=== PATIENT | female | born 1950 | race Caucasian/White ===

== ENCOUNTER 2023-11-13 08:54 | Inpatient (IN) ==
--- NOTE | 2023-10-25 16:08 | PAT Medication Instructions ---
Medication Instructions Date of Service October 25, 2023 Home Medications Medication Instructions Recorded methylprednisolone 2 mg tablet 2 mg PO DAILY PRN arthritis flare 09/18/19 #30 tabs zoledronic acid 5 mg/100 mL in 5 mg IV YEARLY #100 mL 09/18/19 mannitol 5 %-water intravenous piggybck (Reclast) clonazepam 0.5 mg tablet (Klonopin) 0.5 mg PO DAILY PRN anxiety #30 10/08/23 tabs methylprednisolone 2 mg tablet 2 mg PO DAILY PRN zoledronic acid 5 mg/100 mL in mannitol 5 %-water intravenous piggybck (Reclast) 5 mg IV YEARLY clonazepam 0.5 mg tablet (Klonopin) 0.5 mg PO DAILY PRN ascorbic acid (vitamin C) 1,000 mg tablet 1 gm PO QAM aspirin 81 mg tablet,delayed release (Adult Aspirin Regimen) 81 mg PO QAM atorvastatin 80 mg tablet 80 mg PO QAM cholecalciferol (vitamin D3) 25 mcg (1,000 unit) capsule 50 mcg PO QAM clopidogrel 75 mg tablet 75 mg PO QAM cyanocobalamin (vitamin B-12) 1,000 mcg capsule 1,000 mcg PO QAM ezetimibe 10 mg tablet (Zetia) 10 mg PO QAM hydrochlorothiazide 25 mg tablet 25 mg PO QAM naproxen sodium 220 mg tablet (Aleve) 220 mg PO Q12H PRN tofacitinib 11 mg tablet,extended release 24 hr (Xeljanz XR) 11 mg PO QAM Continue as directed clonazepam 0.5 mg tablet (Klonopin) 0.5 mg PO DAILY PRN(if needed) ASK your surgeon for instructions naproxen sodium 220 mg tablet (Aleve) 220 mg PO Q12H PRN ASK your prescriber and surgeon zoledronic acid 5 mg/100 mL in mannitol 5 %-water intravenous piggybck (Reclast) 5 mg IV YEARLY aspirin 81 mg tablet,delayed release (Adult Aspirin Regimen) 81 mg PO QAM clopidogrel 75 mg tablet 75 mg PO QAM tofacitinib 11 mg tablet,extended release 24 hr (Xeljanz XR) 11 mg PO QAM STOP taking 24 hours before surgery methylprednisolone 2 mg tablet 2 mg PO DAILY PRN DO NOT take the morning of surgery ascorbic acid (vitamin C) 1,000 mg tablet 1 gm PO QAM cholecalciferol (vitamin D3) 25 mcg (1,000 unit) capsule 50 mcg PO QAM cyanocobalamin (vitamin B-12) 1,000 mcg capsule 1,000 mcg PO QAM hydrochlorothiazide 25 mg tablet 25 mg PO QAM Take morning of surgery With a small sip of water, OTHERWISE NOTHING TO EAT OR DRINK AFTER MIDNIGHT: atorvastatin 80 mg tablet 80 mg PO QAM ezetimibe 10 mg tablet (Zetia) 10 mg PO QAM Other Notes If you have any questions please call us at [phone] or [phone] or [phone] or [phone]
--- NOTE | 2023-10-26 09:26 | Anesthesiology Consultation ---
Date of Service October 26, 2023 Assessment & Plan (1) Encounter for pre-operative examination: Chart Review Chart Review: Acceptable Risk for Surgery and Patient seen in Pre Admission Testing Per PAT appt on 10/26/23, no recent illness/disease exposures, illness related symptoms, or recent illness/disease positive tests. Will leave to surgeon's discretion if preop Covid testing needed Teaching & Discussion Pre-Anesthesia Teaching/Discussion Notes: Instructed NPO after midnight before surgery,except medications with 15 cc of water. Medication instructions provided according to the PAT guidelines. History Surgery Operation Date: 11/13/23 12:30 Proposed Procedures p Right Transcarotid Artery Revascularization - Nicholas Meier MD Height/Weight Height: 5 ft 7 in Weight: 84.5 kg Allergies Allergy/AdvReac Type Severity Reaction Status Date / Time No Known Allergies Allergy Verified 10/25/23 15:08 Medications Home Medications Medication Instructions Recorded Confirmed Last Taken methylprednisolone 2 mg tablet 2 mg PO DAILY PRN arthritis flare 09/18/19 10/25/23 Unknown #30 tabs zoledronic acid 5 mg/100 mL in 5 mg IV YEARLY #100 mL 09/18/19 10/25/23 Unknown mannitol 5 %-water intravenous piggybck (Reclast) clonazepam 0.5 mg tablet (Klonopin) 0.5 mg PO DAILY PRN anxiety #30 10/08/23 10/25/23 Unknown tabs ascorbic acid (vitamin C) 1,000 mg 1 gm PO QAM 10/25/23 10/25/23 Unknown tablet aspirin 81 mg tablet,delayed 81 mg PO QAM 10/25/23 10/25/23 Unknown release (Adult Aspirin Regimen) atorvastatin 80 mg tablet 80 mg PO QAM 10/25/23 10/25/23 Unknown cholecalciferol (vitamin D3) 25 50 mcg PO QAM 10/25/23 10/25/23 Unknown mcg (1,000 unit) capsule clopidogrel 75 mg tablet 75 mg PO QAM 10/25/23 10/25/23 Unknown cyanocobalamin (vitamin B-12) 1,000 mcg PO QAM 10/25/23 10/25/23 Unknown 1,000 mcg capsule ezetimibe 10 mg tablet (Zetia) 10 mg PO QAM 10/25/23 10/25/23 Unknown hydrochlorothiazide 25 mg tablet 25 mg PO QAM 10/25/23 10/25/23 Unknown naproxen sodium 220 mg tablet 220 mg PO Q12H PRN Pain 10/25/23 10/25/23 Unknown (Aleve) tofacitinib 11 mg tablet,extended 11 mg PO QAM 10/25/23 10/25/23 Unknown release 24 hr (Xeljanz XR) Past Medical History Medical History Anemia due to vitamin B12 deficiency Anxiety Carotid stenosis On Plavix per Dr Meier Per 09/2023 neck CTA- right ICA 90% stenosis, 50% stenosis left ICA Hyperlipidemia Hypertension On anticoagulant therapy plavix daily Osteoporosis PAD (peripheral artery disease) Per 09/2023 neck CTA - approximately 50% narrowing of origin of left subclavian artery Per [facility] bilateral duplex 09/26/23= left SFA 50-69% stenosis Rheumatoid arthritis Follows with rheum Currently stable Exercise / Class Metabolic Activity II 4-5 Yardwork/Stairs/Walk up hill (one flight of stairs - no chest pain or SOB ) Past Family History Family History Mother Anxiety Depression Stroke Brother Diabetes Asthma Sister Diabetes Hypertension Grandmother Uterus cancer Grandmother (Maternal) Colorectal cancer Other No family history of adverse response to anesthesia Denies family history of Ovarian cancer Prostate cancer Myocardial infarction Breast cancer Colonic polyp Past Surgical History Surgical History History of arthroscopy of knee left History of bilateral cataract extraction History of colonoscopy Jul 2015 repeat 5 yrs History of oophorectomy right History of tooth extraction all teeth removed Past Anesthesia History No Hx of Anesthesia Complications and No Family Hx of Anesthesia Complications History of PONV No Hx of PONV and No Hx of Motion Sickness Social History Smoking Status: Current some day smoker Smoking cigarettes per day: maybe 1 "can go days without one and then have one" Do You Dip or Chew Tobacco: No Hx Alcohol Use: Yes Alcohol type: wine alcohol intake frequency: a few times a week Hx Substance Use: No substance use type: does not use Review of Systems - Hx snoring- no hx of sleep study Patient denies chest pain, shortness of breath, dyspnea on exertion, reflux, cough, wheezing, palpitations. No hx of seizures, stroke, [place]. No hx of blood clots or blood transfusions Physical Exam Vital Signs VITALS BP 118/74 P 63 TEMP 97.6 SP02 93% RESP 16 Constitutional no acute distress ENMT Mouth: no TMJ clicking Thyromental Distance: < 3.5 Finger Breadths (3.0) Mallampati Class: III Full dentures on top and bottom Neck + limited neck extension (mild) Respiratory normal respiratory effort; no respiratory distress Auscultation: lungs clear to auscultation bilaterally; no wheezes Cardiovascular Rate/Rhythm: regular rate and regular rhythm Heart Sounds: no murmur Vessels: no carotid bruit Heart sounds mildly diminished throughout Musculoskeletal Spine: + pain with cervical ROM (mildly uncomfortable ) Extremities: extremities normal to inspection Psychiatric Orientation: alert Lab Results Anesthesia Preop Results Results Anesthesia Widget: WBC 7.04 K/ul (4.8-10.8) 10/26/23 Hgb 13.2 g/dl (12.0-16.0) 10/26/23 Hct 37.2 % (37.0-47.0) 10/26/23 Plt 219 K/uL (130-400) 10/26/23 Na 137 mmol/L (136-145) 10/26/23 K 3.7 mmol/L (3.5-5.1) 10/26/23 Cl 101 mmol/L (98-107) 10/26/23 CO2 31 mmol/L (21-32) 10/26/23 BUN 14 mg/dl (6-23) 10/26/23 Creat 0.72 mg/dl (0.6-1.2) 10/26/23 Glucose Level 99 mg/dl (70-99(Fasting)) 10/26/23 PT 10.3 Seconds (9.0-12.0) 10/26/23 PTT 26 Seconds (21-31) 10/26/23 INR 0.9 (0.9-1.1) 10/26/23 Blood Type B Positive 10/26/23 Antibody Screen NEGATIVE 10/26/23 Testing Electrocardiogram Date: 10/26/23 SR with 1st degree AVB at 60bpm Otherwise normal EKG per cardio Chest X-Ray Date: 10/26/23 FINDINGS: Mild right hemidiaphragmatic elevation. Cardiac silhouette is mildly enlarged. No pneumothorax, pleural effusion or airspace consolidation. Cortical thickening of the proximal left humerus suggestive of a healed fracture deformity. Bones are grossly intact. IMPRESSION: No acute process. Cervical Spine Date: 10/26/23 FINDINGS: AP, lateral, odontoid, flexion, and extension views of the cervical spine are obtained. Correlation is made with CT of the neck dated 10/03/2023. The skeletal structures are osteopenic. There is no radiographic evidence of fracture or subluxation. Vertebral body height and alignment are maintained throughout the cervical spine. There is straightening of the cervical lordosis. Anterior osteophytes are seen throughout. There is no inducible bony subluxation on the flexion/extension views. The odontoid process and lateral masses appear intact as seen on the open-mouth view. Productive degenerative change is noted at the atlantodental articulation. The spinolaminar line is intact. The spinous processes are preserved. There is moderate to severe disc space narrowing at all cervical levels between C4-C5 and C7-T1. Posterior disc osteophyte complexes at C4-C5, C5-C6, and C6-C7 may contribute to acquired compromise of the central canal. There is multilevel degenerative endplate sclerosis. Multilevel facet arthropathy seen on the AP view. The prevertebral soft tissues are within normal limits. The imaged apical lung parenchyma appears clear. There is advanced atherosclerotic calcification of the carotid bulbs. IMPRESSION: 1. No acute bony abnormality is seen involving the cervical spine. 2. Osteopenia and spondylotic change as above. 3. No bony subluxation is seen on the flexion/extension views. Other Testing Neck CTA 10/03/2023 = severe, approximately 90% narrowing in the proximal right ICA from calcified and noncalcified atherosclerotic plaque. Approximately 50% narrowing at the proximal left ICA. Atherosclerosis of the origins of the great vessels from the arch including a proximately 50% narrowing of the origin of the left subclavian artery. No intracranial aneurysm, flow-limiting stenosis or high-grade vascular malformation Bilateral lower extremity arterial duplex 09/26/2023 = right lower extremity arteries demonstrate no significant stenosis. Left SFA demonstrates 50-69% stenosis. Left posterior tibial artery is not identified. Remaining left lower extremity arterial segments demonstrate velocities within the normal range.
--- NOTE | 2023-11-12 16:10 | History & Physical Report ---
Date of Service November 12, 2023 History of Present Illness Primary Care Provider: Trevor Giron MD Reason for Consultation Bilateral carotid artery stenosis. History of Present Illness I had the pleasure of seeing Barb today for evaluation of her carotid disease. As you know she is a 73-year-old female who was found to have bilateral carotid artery stenosis worse on the right than the left ultrasound and CT angiogram. She denies any symptoms to vascular sufficiency. She denies any claudication symptoms of her lower extremities. She does have a significant family history for peripheral vascular disease. Review of Systems 10 systems were reviewed. Only positive findings are joint swelling and pain. Rest of the positive findings are as per the HPI. Physical Exam Vitals & Measurements HR: 63 (Monitored) BP: 124/70 SpO2: 98% Input and Output - Last 24 hours (Last 8 hours) No I/O Data Found: On exam she is awake alert and oriented x 3. She is in no apparent distress. Her blood pressure is 124/70 on the left and 130/76 on the right. Her radials and carotids are +2 bilaterally with a right carotid bruit. Lungs are clear. Heart has a reg rate and rhythm. Abdominal exam is benign. Femorals and pe jossie's are +2 bilaterally. Neurologic exam is intact to motor and sensory function. Diagnostic Results Carotid ultrasound and CTA shows a severe stenosis of the right internal carotid artery at its origin and 50% narrowing of the left internal carotid artery. Lower extremity study shows stenosis in her left lower extremity and no significant narrowing in the right. Assessment/Plan 1. Carotid stenosis, bilateral I reviewed the CT angiogram she is a candidate for a TCAR. We we went over the options risks and benefits of a TCAR procedure. These are documented in the consent form. She is agreeable to go ahead with the TCAR of the right carotid artery. This will be scheduled in the near future. Will keep you informed as to her results. Thank you very much for letting us participate in the care of this patient. Sincerely, Martha Meier MD Attestation I have personally spent ___40__ minutes performing [id number] and [id number] activities on this date of service. Activities Include: __x review of the medical record _x_ obtaining a history __x physical exam/evaluation __ review labs _x_ review radiology reports _x_ counseling/educating patient/family/caregiver __ discussion/referral to other healthcare professional __x documenting care in the medical record __ independent interpretation of results cta at [place] __ communication of results to patient/family/caregiver __ coordination of care Problem List/Past Medical History Ongoing Carotid stenosis, bilateral Procedure/Surgical History History of right oophorectomy| Service Date: 1978 Medications Home aspirin(Aspir 81 oral delayed release tablet), 81 mg= 1 tab, PO, Daily atorvastatin(atorvastatin 80 mg oral tablet) cholecalciferol(Vitamin D3 25 mcg (1000 intl units) oral tablet) clonazePAM(clonazePAM 0.5 mg oral tablet) clopidogrel(Plavix 75 mg oral tablet), 1 tab, PO, Daily, 11 refills cyanocobalamin(Vitamin B12 1000 mcg oral tablet), 1000 mcg= 1 tab, PO, Daily ezetimibe(ezetimibe 10 mg oral tablet) hydroCHLOROthiazide(hydroCHLOROthiazide 25 mg oral tablet) methylPREDNISolone(methylPREDNISolone 4 mg oral tablet), See Instructions tofacitinib(Xeljanz XR 11 mg oral tablet, extended release), 11 mg= 1 tab, PO, Daily Allergies NKA Signature Line Electronic Signature on File Nicholas Meier MD Author Signature Dt/Tm: 10/18/2023 12:55 PM 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 Patrick Hopson [facility] [place], [address] [place] [address] EJ Result Type: .Outpt Ltr Date of Service: October 18, 2023 12:52 EDT Authorization Status: Final Subject: Consult Note Author or Import Date: MD Meier Eugene J on October 18, 2023 12:55 EDT Verified By: MD Meier Eugene J on October 18, 2023 12:55 EDT Encounter info: [id number], [place] [id number], [facility], 10/18/2023 - 10/18/2023 Allergies Allergy/AdvReac Type Severity Reaction Status Date / Time No Known Allergies Allergy Verified 10/25/23 15:08 Home Medications Medication Instructions Recorded Confirmed Type methylprednisolone 2 mg tablet 2 mg PO DAILY PRN arthritis flare 09/18/19 10/25/23 Rx #30 tabs zoledronic acid 5 mg/100 mL in 5 mg IV YEARLY #100 mL 09/18/19 10/25/23 Rx mannitol 5 %-water intravenous piggybck (Reclast) clonazepam 0.5 mg tablet (Klonopin) 0.5 mg PO DAILY PRN anxiety #30 10/08/23 10/25/23 Rx tabs ascorbic acid (vitamin C) 1,000 mg 1 gm PO QAM 10/25/23 10/25/23 History tablet aspirin 81 mg tablet,delayed 81 mg PO QAM 10/25/23 10/25/23 History release (Adult Aspirin Regimen) atorvastatin 80 mg tablet 80 mg PO QAM 10/25/23 10/25/23 History cholecalciferol (vitamin D3) 25 50 mcg PO QAM 10/25/23 10/25/23 History mcg (1,000 unit) capsule clopidogrel 75 mg tablet 75 mg PO QAM 10/25/23 10/25/23 History cyanocobalamin (vitamin B-12) 1,000 mcg PO QAM 10/25/23 10/25/23 History 1,000 mcg capsule ezetimibe 10 mg tablet (Zetia) 10 mg PO QAM 10/25/23 10/25/23 History hydrochlorothiazide 25 mg tablet 25 mg PO QAM 10/25/23 10/25/23 History naproxen sodium 220 mg tablet 220 mg PO Q12H PRN Pain 10/25/23 10/25/23 History (Aleve) tofacitinib 11 mg tablet,extended 11 mg PO QAM 10/25/23 10/25/23 History release 24 hr (Xeljanz XR) Past Med/Surg History Problem List Encounter for pre-operative examination Stenosis of right internal carotid artery B12 deficiency Adenomatous polyp of colon PAD (peripheral artery disease) Left lumbar radiculopathy Rheumatoid arthritis Age related osteoporosis Diverticulosis Anxiety (Chronic) Hyperlipidemia (Chronic) Hypertension (Chronic) Medical History Anemia due to vitamin B12 deficiency Anxiety Carotid stenosis On Plavix per Dr Meier Per 09/2023 neck CTA- right ICA 90% stenosis, 50% stenosis left ICA Hyperlipidemia Hypertension On anticoagulant therapy plavix daily Osteoporosis PAD (peripheral artery disease) Per 09/2023 neck CTA - approximately 50% narrowing of origin of left subclavian artery Per [facility] bilateral duplex 09/26/23= left SFA 50-69% stenosis Rheumatoid arthritis Follows with rheum Currently stable Surgical History History of arthroscopy of knee left History of bilateral cataract extraction History of colonoscopy Jul 2015 repeat 5 yrs History of oophorectomy right History of tooth extraction all teeth removed Family History Mother Anxiety Depression Stroke Brother Diabetes Asthma Sister Diabetes Hypertension Grandmother Uterus cancer Grandmother (Maternal) Colorectal cancer Other No family history of adverse response to anesthesia Denies family history of Ovarian cancer Prostate cancer Myocardial infarction Breast cancer Colonic polyp Social History (Updated 09/10/23 @ 09:35 by Day Rosales LPN) Smoking Status: Current some day smoker Tobacco Type: Cigarettes Age Started Using Tobacco: 31; Age Quit Using Tobacco: 63; packs per day: 0.25; Cigarettes Per Day: maybe 1 "can go days without one and then have one"; Second Hand Exposure: Yes; Do You Dip or Chew Tobacco: No; Tobacco Cessation Education Requested by Patient: No Hx Alcohol Use: Yes Alcohol type: wine Alcohol Intake Frequency: Monthly or Less Hx Substance Use: No Preferred Language: German Communication Ability: Effective Visual Impairment: No Limitations Hearing Ability: Normal Manager Social Responsibility Required: No Beliefs That Will Affect Care: None marital status: / Current Living Situation: Alone current occupational status: retired How many Children do You have: 3 Other Information That Helps Us Care for You: No Feels Safe at Home: Yes Safety Concerns: Feels Safe At This Time Childhood Exposure to Second-Hand Smoke: Yes Diet: regular caffeine: Yes during the past year weight has: remained stable Dental Care, Regularly: No Physical Activity Frequency: Does not Exercise Seatbelt Use: always Sunscreen Use: Yes Do you think of yourself as: straight/heterosexual Gender Identity: Female Assistive Devices: Denture - Upper, Denture - Lower and Glasses Assistive Devices Comment: reading glasses
[2023-11-13] MEDS: LACTATED RINGER'S 1,000 ML BAG IV SCH (10:11)
[2023-11-13] MEDS ORDERED: ONDANSETRON INJ 2 MG/ML 2 ML VIAL ONE (10:24)
[2023-11-13] MEDS ORDERED: ROCURONIUM BROMIDE 10 MG/ML 5 ML VIAL IV ONE (10:24)
[2023-11-13] MEDS ORDERED: DEXAMETHASONE SOD INJ 4 MG/ML VIAL ONE (10:24)
[2023-11-13] MEDS ORDERED: GLYCOPYRROLATE 0.2 MG/ML VIAL ONE (10:24)
[2023-11-13] MEDS ORDERED: PROPOFOL IV EMULSION 10 MG/ML 20 ML VIAL IV ONE (10:24)
[2023-11-13] MEDS ORDERED: LIDOCAINE 2% 2 ML VIAL/AMP(20MG/ML) INFIL ONE (10:24)
[2023-11-13] MEDS ORDERED: MIDAZOLAM HCL 1 MG/ML 2ML VIAL ONE (10:24)
[2023-11-13] MEDS ORDERED: fentaNYL citrate PF 100 MCG/2 ML VIAL ONE (10:25)
[2023-11-13] MEDS ORDERED: PROTAMINE SULFATE 10 MG/ML 5 ML VIAL IV ONE (10:27)
[2023-11-13] MEDS ORDERED: SUGAMMADEX SODIUM 200 MG/2 ML VIAL IV ONE (10:27)
[2023-11-13] MEDS ORDERED: HEPARIN SOD (PORCINE) 1000 UNIT/ML ONE (10:27)
[2023-11-13] MEDS ORDERED: PHENYLEPHRINE HCL 25 MG/250 ML NSS IV ONE (10:27)
[2023-11-13] MEDS ORDERED: PHENYLEPHRINE 100MCG/ML 10ML SYR IV ONE (10:27)
[2023-11-13] MEDS ORDERED: ePHEDrine sulfate 50 MG/ML AMP ONE (10:27)
[2023-11-13] MEDS ORDERED: fentaNYL citrate PF 100 MCG/2 ML VIAL IV PRN (11:04)
[2023-11-13] MEDS ORDERED: ONDANSETRON INJ 2 MG/ML 2 ML VIAL IV PRN ×2 (11:04→15:46)
[2023-11-13] MEDS ORDERED: PHENYLEPHRINE 100MCG/ML 5ML SYR IV PRN (11:04)
[2023-11-13] MEDS ORDERED: LABETALOL HCL IV 5 MG/ML 20ML IV PRN (11:04)
[2023-11-13] MEDS ORDERED: KETOROLAC 30 MG/ML VIAL IV PRN (11:04)
[2023-11-13] MEDS ORDERED: ePHEDrine sulfate 50 MG/ML AMP IV PRN (11:04)
[2023-11-13] MEDS ORDERED: ATROPINE SULFATE 0.1 MG/ML 10ML SYR IV PRN (11:04)
[2023-11-13] MEDS: HYDROCORTISONE SOD SUCCINATE 100 MG/2 ML VIAL IV SCH (11:26)
--- NOTE | 2023-11-13 11:27 | History & Physical Bridge Note ---
Date of Service November 13, 2023 History & Physical Bridge Note I have examined the patient, reviewed the History & Physical and in the interval since the performance of the History & Physical I have noted the following changes of clinical significance: no changes noted
[2023-11-13] MEDS: CEFAZOLIN 2,000 MG/15 ML SYR IV SCH (12:21)
[2023-11-13] MEDS: VISIPAQUE IV ONE (13:16)
[2023-11-13] MEDS: ceFAZolin 330 MG/ML 1 GM VIAL ONE (13:25)
[2023-11-13] MEDS: GELATIN SPONGE SZ 100 ONE (13:29)
[2023-11-13] MEDS: THROMBIN FOR SOLN 20000 UNIT KIT ONE (13:29)
[2023-11-13] MEDS: BUPIVACAINE/EPINEPHRINE 0.5% MPF 1:200,000 30 ML VIAL ONE (13:38)
--- NOTE | 2023-11-13 13:39 | Procedure Note ---
Angiogram Post Procedure Fluoroscopy Time (minutes): 3 Radiation (mGy): 28 Contrast: 12 Post Operative Report Pre & Post Diagnosis Operation Date: 11/13/23 11:50 Pre-Op Diagnosis: Bilateral carotid artery stenosis Post-Op Diagnosis: Bilateral carotid artery stenosis I identified the patient and participated in the time-out.: Yes Procedure Operation Date: 11/13/23 11:50 Actual Procedures p Right Transcarotid Artery Revascularization, ultrasound right common femoral vein(Right) - Nicholas Meier MD Surgeon Nicholas Meier MD [employer] [place],[employer] Estimated Blood Loss 20 Findings Consistent with Post-Op Diagnosis Specimens none Anesthesia Type General Complications none Disposition Accompanied Patient To Recovery: No Disposition: Recovery Room Indications This is a 73-year-old female was found to have severe stenosis of her right internal carotid artery. Intervention was recommended. She elected to go ahead with TCAR procedure. I have discussed the risks options and benefits of the procedure with the patient. The patient understands the risks options and benefits and agrees to the procedure. Description of Procedure The patient was taken to the operating room and placed in supine position. After general anesthesia was accomplished the groins and right side of the neck and chest were prepped and draped in a sterile manner. Timeout was performed and the patient was identified. A transverse incision was made just above the clavicle between the heads of the sternocleidomastoid. This is carried down to where the common carotid artery was identified. It was isolated. It was slung with umbilical tape. Next the U stitch was placed in the common carotid artery with a 5-0 Prolene suture. Patient was given 9000 heparin at that time. Ultrasound was then used to localize the left common femoral vein. The vein was patent and compressed easily. Under ultrasound guidance the left common femoral vein was punctured and the venous sheath was inserted. This was aspirated and flushed with heparinized saline. ACT at that time was 330. Using micropuncture technique the common carotid artery was punctured. The micro sheath was inserted to 3 cm. Injection was then done showing the bifurcation. There was a significant lesion seen at the origin of the internal carotid artery on the right side. We then inserted the J-wire left and short of the lesion. The micro sheath was removed and the TCAR sheath was inserted. Once it was in place and held against the artery it was sutured to the chest wall and the incision edge. We then flushed the tubing appropriately. The venous return to was clamped onto the TCAR sheath. It was flushed through and then attached to the venous inflow sheath in the left groin. Sheath was checked for flow. The saline cleared nicely. The common carotid artery was then clamped. Flow reversal was instituted. We inserted a 5 x 35 balloon backloaded on the wire. The wire was passed through the lesion into the petrous portion of the internal carotid. The 5 balloon was then advanced to the lesion. Lesion was then predilated with a 5 mm balloon. Balloon was removed. We then inserted the 10/8 x 40 stent. This was deployed across the lesion without difficulty. The cat heter was removed. The carotid was allowed to go 2 minutes with flow reversal. Completion angiogram was done at that time which showed a widely patent carotid stent. At that point the common carotid artery was unclamped. The venous return tubing was clamped and removed from the TCAR sheath. The blood was allowed to flow back into the venous system. Once this was completed the sheath was pulled from the groin and pressure was applied. The TCAR sheath was then removed and the 5-0 Prolene suture securely tied. Hemostasis was noted of the puncture site. Wound was irrigated with Ancef solution. Adequate hemostasis was obtained of the wound. Once this was noted the wound was closed in usual fashion using a 3-0 Vicryl suture for the subcutaneous layer and a 4-0 subcuticular Vicryl suture for the skin edges. Dermabond was used for dressing.The patient left the operation room in satisfactory condition and tolerated the procedure well. All needle and sponge counts were correct at the end of the procedure. Chanelle Lockwood Pac assisted due to lack of resident availability and was necessary for positioning, draping, retraction, wound closure deep layers, subcutaneous tissue, and skin closure and was necessary for assisting with the case. I attest to the content of the Intraoperative Record and any orders documented therein. Any exceptions are noted below.
--- NOTE | 2023-11-13 14:46 | Anesthesiology Progress Note ---
Date of Service November 13, 2023 Anesthesia Post Procedure Vital Signs Vital Signs: Temp Pulse Pulse Resp BP BP BP 11/13/23 14:35 64 16 111/49 L 104/56 L 11/13/23 14:25 72 17 113/48 L 100/60 11/13/23 14:15 76 19 145/56 H 120/55 L 11/13/23 14:05 74 17 128/55 L 127/57 L 11/13/23 13:58 36.5 C 89 21 114/53 L 11/13/23 09:45 36.7 C 58 L 18 133/74 133/71 Pulse Ox O2 Del Method O2 Flow Rate 11/13/23 14:35 96 Oxymask 2 11/13/23 14:25 98 Oxymask 4 11/13/23 14:15 99 Oxymask 6 11/13/23 14:05 98 Oxymask 8 11/13/23 13:58 95 Oxymask 8 11/13/23 09:45 94 Room Air Pain Intensity Right Hip: Pain Intensity: 10 Transfer of Care Handoff Completed per policy Notes Mental Status: alert / awake / arousable Patient Amnestic to Procedure: Yes Nausea / Vomiting: adequately controlled Pain: adequately controlled Airway Patency, RR, SpO2: stable & adequate BP & HR: stable & adequate Hydration State: stable & adequate Anesthetic Complications: no major complications apparent
[2023-11-13] MEDS ORDERED: ZOLEDRONIC ACID 5 MG/100 ML VIAL IV SCH (15:46)
[2023-11-13] MEDS ORDERED: methylPREDNISolone 4 MG TAB PO PRN (15:46)
[2023-11-13] MEDS ORDERED: STAT IV Infusion **Titration per Protocol STA (15:46)
[2023-11-13] MEDS ORDERED: clonazePAM 0.5 MG TAB PO PRN (15:46)
[2023-11-13] MEDS ORDERED: NAPROXEN 250 MG TAB PO PRN (15:54)
[2023-11-13] MEDS ORDERED: PHENYLEPHRINE/NSS 25 MG/250 ML BAG IV PRN (15:55)
[2023-11-13] MEDS: LACTATED RINGER'S 1,000 ML IV SCH (16:17)
[2023-11-13] MEDS: ceFAZolin 2000MG 2,000 MG/15 ML SYR IV SCH (16:20)
--- NOTE | 2023-11-13 18:35 | Critical Care Consultation ---
Date of Consultation November 13, 2023 Assessment & Plan (1) Stenosis of right internal carotid artery: (2) PAD (peripheral artery disease): (3) Rheumatoid arthritis: (4) Anxiety: (5) Hyperlipidemia: (6) Hypertension: Plan Reason Critically Ill: 73 YOF admitted to the ICU postoperative day #0 from Right Transcarotid Artery Revascularization, ultrasound right common femoral vein(Right)- perfmormed by Dr. Meier Neuro - Bilateral carotid artery stenosis, s/p RIGHT TCAR, Anxiety CAM ICU: NEGATIVE - NO deficits, pain controlled, no hematoma, peripheral pulses intact - antiplatlet and anticoagulation per primary vascular service - ASA - Anxiety- Klonopin daily - Multitiered pain controlled ordered by primary service Cardiac -HLD, HTN - Continu tatin - hold antihypertensives until hemodynamics proven stable - norsynephrine available if needed Respiratory - No acute needs GI - No acute needs RENAL/LYTES - No acute needs - No acute needs ENDO - No acute needs HEME - RA - Continue methyl pred 2 mg daily - Continue Xejanz if formulary ID - No concern at this time for infective process LINES/IV ACCESS - PIV, Arterial line Continue use of these lines DVT PROPHYLAXIS - SCDS, ASA DISPO: ICU until hemodynamics are proven stable and hemostasis is ensured I have personally spent 35 minutes of critical care time in the direct management of this patient. This is a life/limb threatening event. This includes time spent evaluating patient, direct bedside care, chart review, placing orders, interpretation of diagnostic studies, discussion with consultants, patient, and family members, as well as other required patient management activities. This time is exclusive of all separately billable procedures, and teaching time and separate from and in addition to any other critical care service time. Thank you for allowing us to participate in the care of this patient. Please refer to my attending physician's documentation for any further recommendations. History of Present Illness Reason for Consultation: Right Transcarotid Artery Revascularization, ultrasound right common femoral vein(Right) Requesting Physician: Hardeep Peterson Attending Physician: Nicholas Meier MD History of Present Illness 73 YOF with medical history of: Familial hyperlipidemia, RA ( on Zeljance), Anxiety, and Carotid artery disease. Patient was undergoing screening and found to have bilateral carotid artery disease, right greater than left. Reportedly she was asymptomatic. She is s/p RT TCAR performed by Dr. Meier. The patient is in the ICU, awake, conversant, pain controlled. She is on room air, not currently on any vasoactive medications and has tolerated dinner. CODE: FULL Allergies Allergy/AdvReac Type Severity Reaction Status Date / Time No Known Allergies Allergy Verified 11/13/23 09:42 Home Medications Medication Instructions Recorded Confirmed Type methylprednisolone 2 mg tablet 2 mg PO DAILY PRN arthritis flare 09/18/19 11/13/23 Rx #30 tabs zoledronic acid 5 mg/100 mL in 5 mg IV YEARLY #100 mL 09/18/19 11/13/23 Rx mannitol 5 %-water intravenous piggybck (Reclast) clonazepam 0.5 mg tablet (Klonopin) 0.5 mg PO DAILY PRN anxiety #30 10/08/23 11/13/23 Rx tabs ascorbic acid (vitamin C) 1,000 mg 1 gm PO QAM 10/25/23 11/13/23 History tablet aspirin 81 mg tablet,delayed 81 mg PO QAM 10/25/23 11/13/23 History release (Adult Aspirin Regimen) atorvastatin 80 mg tablet 80 mg PO QAM 10/25/23 11/13/23 History cholecalciferol (vitamin D3) 25 50 mcg PO QAM 10/25/23 11/13/23 History mcg (1,000 unit) capsule clopidogrel 75 mg tablet 75 mg PO QAM 10/25/23 11/13/23 History cyanocobalamin (vitamin B-12) 1,000 mcg PO QAM 10/25/23 11/13/23 History 1,000 mcg capsule ezetimibe 10 mg tablet (Zetia) 10 mg PO QAM 10/25/23 11/13/23 History hydrochlorothiazide 25 mg tablet 25 mg PO QAM 10/25/23 11/13/23 History naproxen sodium 220 mg tablet 220 mg PO Q12H PRN Pain 10/25/23 11/13/23 History (Aleve) tofacitinib 11 mg tablet,extended 11 mg PO QAM 10/25/23 11/13/23 History release 24 hr (Xeljanz XR) Patient History Medical History Carotid stenosis On Plavix per Dr Meier Per 09/2023 neck CTA- right ICA 90% stenosis, 50% stenosis left ICA Rheumatoid arthritis Follows with rheum Currently stable Osteoporosis On anticoagulant therapy plavix daily Anxiety PAD (peripheral artery disease) Per 09/2023 neck CTA - approximately 50% narrowing of origin of left subclavian artery Per LE bilateral duplex 09/26/23= left SFA 50-69% stenosis Hypertension Hyperlipidemia Anemia due to vitamin B12 deficiency Surgical History History of tooth extraction all teeth removed History of bilateral cataract extraction History of oophorectomy right History of arthroscopy of knee left History of colonoscopy Jul 2015 repeat 5 yrs Family History Mother Anxiety Depression Stroke Brother Diabetes Asthma Sister Diabetes Hypertension Grandmother Uterus cancer Grandmother (Maternal) Colorectal cancer Other No family history of adverse response to anesthesia Denies family history of Ovarian cancer Prostate cancer Myocardial infarction Breast cancer Colonic polyp Social History Smoking Status: Current some day smoker Tobacco Type: Cigarettes Age Started Using Tobacco: 31; Age Quit Using Tobacco: 63; packs per day: 0.25; Cigarettes Per Day: maybe 1 "can go days without one and then have one"; Second Hand Exposure: Yes; Do You Dip or Chew Tobacco: No; Tobacco Cessation Education Requested by Patient: No Hx Alcohol Use: Yes Alcohol type: wine Alcohol Intake Frequency: Monthly or Less Hx Substance Use: No Preferred Language: Latvian Communication Ability: Effective Visual Impairment: No Limitations Hearing Ability: Normal 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 Beliefs That Will Affect Care: None marital status: / Current Living Situation: Alone current occupational status: retired How many Children do You have: 3 Other Information That Helps Us Care for You: No Feels Safe at Home: Yes Safety Concerns: Feels Safe At This Time Childhood Exposure to Second-Hand Smoke: Yes Diet: regular caffeine: Yes during the past year weight has: remained stable Dental Care, Regularly: No Physical Activity Frequency: Does not Exercise Seatbelt Use: always Sunscreen Use: Yes Do you think of yourself as: straight/heterosexual Gender Identity: Female Assistive Devices: Denture - Upper, Denture - Lower and Glasses Assistive Devices Comment: reading glasses Review of Systems Review of Systems: REVIEW OF SYSTEMS: Constitutional: No fever, sweats or chills Eyes: No diplopia, no worsening or blurred vision ENT: normal hearing, no trouble swallowing Respiratory: No cough, sputum, dyspnea at rest or on exertion Cardiovascular: No chest pain, tightness or palpitations Abdomen: No pain, nausea, vomiting, diarrhea or constipation Musculoskeletal:chronic joint pain, NO calf pain, swelling Neurologic: No weakness, numbness/tingling, or balance problems Psychiatric: (+) anxiety or depression Skin: No rash or itch Physical Exam Physical Exam: PHYSICAL EXAM: General: awake, alert, no apparent distress Head: Normocephalic, atraumatic ENT: PERRL, EOMI, no pharyngeal exudate, mucous membranes moist Neuro: AAO x 3, speech clear and appropriate, strength intact bilaterally 5/5, sensation intact and equal all extremities and dermatomes, no pronator drift Chest: equal rise and fall of the chest, no accessory muscle use, no heaves or thrills, Clear to auscultation, on room air, Cardiac: Regular rate and rhythm, telemetry reviewed- NSR, skin warm dry, cap refill <3 seconds, peripheral pulses +2 no JVD, no murmur, no JVD, no edema. Right neck incision is intact with dermabond, no drainage or hematoma noted, right groin is wrapped with elizabeth wrap no strike through, peripheral pulses are marked and palpable. GI: NABS x 4 quadrants, soft, nontender to palpation, no rebound, guarding or tenderness : Spontaneously voiding, no pain, no CVA tenderness, Extremities: Normal inspection, no peripheral edema or erythema, calfs nontender to palpation Psych: Normal mood and affect Skin: no rash or erythema Results & Data Results & Data Vital Signs (Past 12 Hours) Vital Signs Temp Pulse Pulse Pulse Resp BP BP 11/13/23 18:00 63 17 112/59 L 11/13/23 18:00 11/13/23 17:06 63 19 11/13/23 16:12 11/13/23 16:06 62 25 H 11/13/23 16:00 62 11/13/23 15:46 36.4 C L 11/13/23 15:37 11/13/23 15:05 36.6 C 61 19 11/13/23 14:45 63 15 11/13/23 14:35 64 16 11/13/23 14:25 72 17 11/13/23 14:15 76 19 11/13/23 14:05 74 17 11/13/23 13:58 36.5 C 89 21 11/13/23 09:45 36.7 C 58 L 18 133/74 BP BP Pulse Ox O2 Del Method O2 Flow Rate 11/13/23 18:00 97 Nasal Cannula 2 11/13/23 18:00 Nasal Cannula 2 11/13/23 17:06 97 Nasal Cannula 2 11/13/23 16:12 Nasal Cannula 2 11/13/23 16:06 Nasal Cannula 2 11/13/23 16:00 11/13/23 15:46 11/13/23 15:37 Nasal Cannula 2 11/13/23 15:05 109/46 L 103/56 L 94 Nasal Cannula 2 11/13/23 14:45 107/47 L 104/56 L 94 Oxymask 2 11/13/23 14:35 111/49 L 104/56 L 96 Oxymask 2 11/13/23 14:25 113/48 L 100/60 98 Oxymask 4 11/13/23 14:15 145/56 H 120/55 L 99 Oxymask 6 11/13/23 14:05 128/55 L 127/57 L 98 Oxymask 8 11/13/23 13:58 114/53 L 95 Oxymask 8 11/13/23 09:45 133/71 94 Room Air Laboratory Results Abnormal lab results 11/13/23 11/13/23 11/13/23 Range/Units 12:59 13:30 16:18 Activ Coag Time Kaolin 330 H 146 H (94-140) SECONDS POC Glucose 140 H (70-99) mg/dl Coding Level of Care Code 33667 CRITICAL CARE 1ST 30-74M Diagnoses Stenosis of right internal carotid artery I65.21 PAD (peripheral artery disease) I73.9 Rheumatoid arthritis involving hand with positive rheumatoid factor, unspecified laterality M05.749 Rheumatoid arthritis location: hand Rheumatoid factor presence: with rheumatoid factor Laterality: unspecified laterality Anxiety F41.9 Mixed hyperlipidemia E78.2 Hyperlipidemia type: mixed hyperlipidemia Primary hypertension I10 Hypertension type: primary hypertension (3) Rheumatoid arthritis Rheumatoid arthritis location: hand Rheumatoid factor presence: with rheumatoid factor Laterality: unspecified laterality Qualified Code(s): M05.749 - Rheumatoid arthritis with rheumatoid factor of unspecified hand wi thout organ or systems involvement (5) Hyperlipidemia Hyperlipidemia type: mixed hyperlipidemia Qualified Code(s): E78.2 - Mixed hyperlipidemia (6) Hypertension Hypertension type: primary hypertension Qualified Code(s): I10 - Essential (primary) hypertension
[2023-11-14] MEDS: oxyCODONE/ACETAMINOPHEN 5mg/325mg TAB PO PRN (04:19)
[2023-11-14] MEDS: CLOPIDOGREL BISULFATE 75 MG TAB PO SCH (09:56)
[2023-11-14] MEDS: ASPIRIN 81 MG ECTAB PO SCH (09:56)
[2023-11-14] MEDS: CHOLECALCIFEROL 25 MCG (1000 UNITS) TAB PO SCH (09:56)
[2023-11-14] MEDS: ASCORBIC ACID 500 MG TAB PO SCH (09:57)
[2023-11-14] MEDS: EZETIMIBE 10 MG TAB PO SCH (09:57)
[2023-11-14] MEDS: CYANOCOBALAMIN (B-12) 500 MCG TABLET PO SCH (09:57)
[2023-11-14] MEDS: hydroCHLOROthiazide 25 MG TAB PO SCH (09:57)
[2023-11-14] MEDS: ATORVASTATIN 40 MG TAB PO SCH (09:57)
--- NOTE | 2023-11-14 12:43 | Surgery Progress Note ---
Date of Service November 14, 2023 Assessment & Plan (1) Stenosis of right internal carotid artery: Plan: Patient POD 1 from a right tcar. She is doing well with no focal deficits. Will D/C today. Admission and Anticipated Discharge Date Admission Date: November 13, 2023 Subjective Patient with no complaints post TCAR. No focal deficits. Physical Exam Constitutional: WD/WN, vitals as above Neck: trachea midline Respiratory: normal respiratory effort; no respiratory distress Cardiovascular: Rate/Rhythm: regular rate and regular rhythm Skin: + incision (dry and clean) Neurologic: CN's II-XI intact bilaterally and moves all extremities Results & Data Vital Signs (Past 12 Hours) Vital Signs Temp Pulse Resp BP BP Pulse Ox O2 Del Method 11/14/23 12:00 36.7 C 128/68 11/14/23 11:00 58 L 15 94 11/14/23 10:00 69 13 93 11/14/23 09:09 65 19 95 11/14/23 08:30 Room Air 11/14/23 08:00 65 11/14/23 08:00 69 19 120/64 95 11/14/23 08:00 67 11/14/23 07:00 118/60 11/14/23 06:57 64 16 92 11/14/23 06:15 67 16 96 11/14/23 05:00 134/56 L 11/14/23 05:00 134/56 L 11/14/23 05:00 60 15 99 11/14/23 04:03 77 18 91 11/14/23 04:00 110/59 L 11/14/23 03:54 71 18 90 11/14/23 03:06 73 16 89 L 11/14/23 03:00 129/67 11/14/23 02:48 74 16 90 11/14/23 02:03 71 17 89 L 11/14/23 02:00 120/62 11/14/23 01:54 73 19 90 11/14/23 01:09 70 0 L 91
--- NOTE | 2023-11-14 14:06 | Discharge Summary ---
"Date of Service November 14, 2023 Admission HPI Per Admitting Provider Reason for Consultation Bilateral carotid artery stenosis. History of Present Illness I had the pleasure of seeing Barb today for evaluation of her carotid disease. As you know she is a 73-year-old female who was found to have bilateral carotid artery stenosis worse on the right than the left ultrasound and CT angiogram. She denies any symptoms to vascular sufficiency. She denies any claudication symptoms of her lower extremities. She does have a significant family history for peripheral vascular disease. Review of Systems 10 systems were reviewed. Only positive findings are joint swelling and pain. Rest of the positive findings are as per the HPI. Physical Exam Vitals & Measurements HR: 63 (Monitored) BP: 124/70 SpO2: 98% Input and Output - Last 24 hours (Last 8 hours) No I/O Data Found: On exam she is awake alert and oriented x 3. She is in no apparent distress. Her blood pressure is 124/70 on the left and 130/76 on the right. Her radials and carotids are +2 bilaterally with a right carotid bruit. Lungs are clear. Heart has a reg rate and rhythm. Abdominal exam is benign. Femorals and pedal's are +2 bilaterally. Neurologic exam is intact to motor and sensory function. Diagnostic Results Carotid ultrasound and CTA shows a severe stenosis of the right internal carotid artery at its origin and 50% narrowing of the left internal carotid artery. Lower extremity study shows stenosis in her left lower extremity and no significant narrowing in the right. Assessment/Plan 1. Carotid stenosis, bilateral I reviewed the CT angiogram she is a candidate for a TCAR. We we went over the options risks and benefits of a TCAR procedure. These are documented in the consent form. She is agreeable to go ahead with the TCAR of the right carotid artery. This will be scheduled in the near future. Will keep you informed as to her results. Thank you very much for letting us participate in the care of this patient. Sincerely, Martha Meier MD Attestation I have personally spent ___40__ minutes performing [id number] and [id number] activities on this date of service. Activities Include: __x review of the medical record _x_ obtaining a history __x physical exam/evaluation __ review labs _x_ review radiology reports _x_ counseling/educating patient/family/caregiver __ discussion/referral to other healthcare professional __x documenting care in the medical record __ independent interpretation of results cta at [place] __ communication of results to patient/family/caregiver __ coordination of care Problem List/Past Medical History Ongoing Carotid stenosis, bilateral Procedure/Surgical History History of right oophorectomy| Service Date: 1978 Medications Home aspirin(Aspir 81 oral delayed release tablet), 81 mg= 1 tab, PO, Daily atorvastatin(atorvastatin 80 mg oral tablet) cholecalciferol(Vitamin D3 25 mcg (1000 intl units) oral tablet) clonazePAM(clonazePAM 0.5 mg oral tablet) clopidogrel(Plavix 75 mg oral tablet), 1 tab, PO, Daily, 11 refills cyanocobalamin(Vitamin B12 1000 mcg oral tablet), 1000 mcg= 1 tab, PO, Daily ezetimibe(ezetimibe 10 mg oral tablet) hydroCHLOROthiazide(hydroCHLOROthiazide 25 mg oral tablet) methylPREDNISolone(methylPREDNISolone 4 mg oral tablet), See Instructions tofacitinib(Xeljanz XR 11 mg oral tablet, extended release), 11 mg= 1 tab, PO, Daily Allergies NKA Signature Line Electronic Signature on File Nicholas Meier MD Author Signature Dt/Tm: 10/18/2023 12:55 PM Histology Teacher Patrick Hopson [facility] [place], [address] [place], [place] [address] Result Type: .Outpt Ltr Date of Service: October 18, 2023 12:52 EDT Authorization Status: Final Subject: Consult Note Author or Import Date: MD Meier Eugene J on October 18, 2023 12:55 EDT Verified By: MD Meier Eugene J on October 18, 2023 12:55 EDT Encounter info: [id number], [facility], Clinic, 10/18/2023 - 10/18/2023 Admission Exam Per Admitting Provider On exam she is awake alert and oriented x 3. She is in no apparent distress. Her blood pressure is 124/70 on the left and 130/76 on the right. Her radials and carotids are +2 bilaterally with a right carotid bruit. Lungs are clear. Heart has a reg rate and rhythm. Abdominal exam is benign. Femorals and pedal's are +2 bilaterally. Neurologic exam is intact to motor and sensory function. Principal Diagnosis 1. s/p R TCAR 2. R ICA stenosis Discharge Exam Constitutional WD/WN, vitals as above Neck trachea midline Respiratory normal respiratory effort; no respiratory distress Cardiovascular Rate/Rhythm: regular rate and regular rhythm Skin + incision (dry and clean) Neurologic CN's II-XI intact bilaterally and moves all extremities Discharge Data Allergies Allergy/AdvReac Type Severity Reaction Status Date / Time No Known Allergies Allergy Verified 11/13/23 09:42 Consultations 11/13/23 15:46 Consult Relief Pharmacist Routine Procedures Performed Operation Date: 11/13/23 11:50 Actual Procedures p Right Transcarotid Artery Revascularization, ultrasound right common femoral vein(Right) - Nicholas Meier MD Ordered Studies 11/13/23 07:08 EV angio carotid cerv RT Routine US EV guide vascular access Routine Hospital Course (1) Stenosis of right internal carotid artery: Patient POD 1 from a right tcar. She is doing well with no focal deficits. Will D/C today. Total Time Total Time Spent Total Time Spent (In Minutes): 0 Discharge Plan Discharge Items Patient Disposition: Home - Self-Care Reason For Visit: Bilateral Carotid Artery Stenosis Discharge Diagnosis: Right internal carotid artery stenosis Activity: Per Instructions section Non-emergency contact: Surgeon Call non-emergency contact if: your temperature is above 101.5, your wound has increased redness, your wound has increased drainage and your wound pain has increased Follow-up/Referrals: Trevor Giron MD [Primary Care Provider] - 11/29/23 1:30 pm (Hospital follow up scheduled November 28 at 1:30 with Mary Arndt) Diet: Heart Healthy Addtl Attending Provider Instructions: SPECIAL CARE INSTRUCTIONS: Medications: * Continue to take Aspirin, plavix and statin as directed. Incision Care: * You may shower, but do not rub incision. You may let the warm soapy water run over it. Be sure to dry the incision well after bathing. * Do not shave directly over the incision until it is healed. * DO NOT IMMERSE THE INCISION IN A TUB/POOL/etc. UNTIL HEALED. Restrictions: * Do not drive for at least one week or if you are still taking any narcotic pain medication. * Do not lift anything heavier than a gallon of milk for one week after going home. Possible Complications: * Numbness - It is normal to have some numbness around the incision. Numbness can extend beyond the incision to areas of the neck, ear and face. The numbness is due to bruising of nerves during the surgery and will gradually improve over a period of months. * Hoarseness/Difficulty Speaking and Swallowing - The bruising of nerves in the neck can also cause a hoarse voice, difficulty speaking or swallowing. This may improve over time, HOWEVER, if it continues for more than a few days please contact our office ([phone]). * Excessive Swelling - There will be some swelling immediately after surgery which usually resolves within one week. If you notice that the swelling is getting worse, notify your surgeon ([phone]). * Drainage/Bleeding - If there is any drainage or bleeding, it should be a very small amount (less than a teaspoon per day). If you have excessive bleeding or drainage from the incision, call your surgeon ([phone]) right away. ACTIVATION OF EMERGENCY MEDICAL SYSTEM: Call 911, immediately, if you experience any of the following: Warning Signs and Symptoms of Stroke: * Sudden numbness or weakness of the face, arm or leg, especially on one side of the body * Sudden confusion, trouble speaking or understanding * Sudden trouble seeing in one or both eyes * Sudden trouble walking, dizziness, loss of balance or coordination * Sudden severe headache with no cause Do not delay calling 911 if you experience any warning signs or symptoms of a stroke. Delay in seeking medical attention may affect what treatments can be given to you. Risk Factors for Stroke: You can reduce your chances of stroke by working with your medical provider to adopt a healthy lifestyle. Some specific ways to lower your chance of stroke are: * If you are a smoker, now is the time to stop smoking cigarettes * If you are diabetic, improve the control of your blood sugars * Avoid excessive amounts of alcohol * Control high blood pressure * Lose weight if you are overweight * Be sure to lead an active lifestyle * Eat a healthy diet low in salt, cholesterol and fat You should know about other risk factors for stroke that you are unable to control. These include: * Age 55 years or older * Male gender * Certain racial groups: , or / * Family History of Stroke, Mini stroke or Heart Attack * Sickle Cell Disease You will be receiving a call from the Vascular Surgery Nurse after you are discharged. FOLLOW UP VISIT: It is important for you to keep your follow up appointments with your medical provider. Keep any scheduled doctor appointments. Call [phone] to schedule a follow up appointment if one not already scheduled. Pending Studies at Discharge: No Stand-Alone Forms: [facility] PredicSis, Smoking Cessation Medications and DC Order Prescriptions: New oxycodone-acetaminophen [Percocet] 2.5-325 mg tablet 1 tab PO Q8H PRN (Reason: pain) Qty: 10 0RF Continued clonazepam [Klonopin] 0.5 mg tablet 0.5 mg PO DAILY PRN (Reason: anxiety) Qty: 30 5RF methylprednisolone 2 mg tablet 2 mg PO DAILY PRN (Reason: arthritis flare) Qty: 30 0RF Rx Instructions: Pt. not certain of dose zoledronic [id number] [Reclast] 5 mg/100 mL piggyback 5 mg IV YEARLY Qty: 100 0RF clopidogrel 75 mg Tablet 75 mg PO QAM Xeljanz XR 11 mg Tablet Extended Release 24 Hr 11 mg PO QAM atorvastatin 80 mg tablet 80 mg PO QAM ascorbic acid (vitamin C) 1,000 mg tablet 1 gm PO QAM aspirin [Adult Aspirin Regimen] 81 mg tablet,delayed release (DR/EC) 81 mg PO QAM hydrochlorothiazide 25 mg tablet 25 mg PO QAM cholecalciferol (vitamin D3) 25 mcg (1,000 unit) capsule 50 mcg PO QAM ezetimibe [Zetia] 10 mg tablet 10 mg PO QAM cyanocobalamin (vitamin B-12) 1,000 mcg capsule 1,000 mcg PO QAM naproxen sodium [Aleve] 220 mg Tablet 220 mg PO Q12H PRN (Reason: Pain) Discharge Orders: Discharge Order (Routine); Ordered 11/14/23 Ordered By: Nicholas Meier Admission Data Admit Date/Time: 11/13/23 11:26 Attending Provider: Nicholas Meier Admit Provider: Nicholas Meier Primary Care Provider: Trevor Giron Other Providers: Chris Gunn; Marty Ott; Deejay Davidson; Esteban Hooker; Luca Mcgill; Spenser Egan; Eliezer Cee; Miriam Griffith; Randa Beltran; Micah Glass; Obdulio Merino; Elizabeth Robles Other Interventions: Discharge Summary Assessment (RN) Last Done: 11/14/23 12:45"
== END 2023-11-14 13:18 | disposition home or self-care (01) | DRG 36 ==
LOC: ASU 08:54 → 1E 11:26
PROC: EV.TCAR (2023-11-13 11:50)